=== PATIENT | male | born 1940 | race Two or more races ===

== ENCOUNTER 2017-07-17 15:07 | Inpatient (IN) | payer MEDICARE ==
[~2017-07-17] VITALS: Ht 170.2 cm; Wt 67.0 kg
[2017-07-17 15:30] VITALS: Ht 170.2 cm; Wt 67.0 kg
[2017-07-17 16:59] LABS: microscopic required? YES; urine erythrocyte 3+ (NEGATIVE)
[2017-07-17 17:05] LABS: BASOPHIL % 0 % (0-2); PLATELET COUNT 360 x10^3mcL (130-400); RED CELL DISTRIBUTION WIDTH 14.1 % (11.5-14.5)
[2017-07-17 17:16] LABS: CALCIUM 9.7 mg/dL (8.5-10.1); CARBON DIOXIDE 28.1 mmol/L (21-32); CHLORIDE SERUM 100 mmol/L (98-107); CREATININE SERUM 1.4 mg/dL (0.7-1.3); GLUCOSE SERUM 207 mg/dL (74-106); POTASSIUM SERUM 4.6 mmol/L (3.5-5.1); SODIUM SERUM 137 mmol/L (136-145)
[2017-07-17 17:20] LABS: ALKALINE PHOSPHATASE 300 U/L (46-116); ALT/SGPT 232 U/L (16-63); AST/SGOT 377 U/L (15-37); BILIRUBIN TOTAL 2.36 mg/dL (0.20-1.00); TOTAL PROTEIN, SERUM 6.9 g/dL (6.4-8.2)
[2017-07-17] MEDS ORDERED: ADVAIR DISKUS 21 DSK IH (18:13)
[2017-07-17] MEDS ORDERED: TYLENOL WITH CO1 TA2 PO (18:13)
[2017-07-17] MEDS ORDERED: [UNRECOGNIZED DRUG - OTHER] (18:14)
[2017-07-17] MEDS ORDERED: ASPIRIN ADULT L81 M5 PO (18:14)
[2017-07-17] MEDS ORDERED: FLOVENT HF0.11 MG/A1 IH (18:14)
[2017-07-17] MEDS ORDERED: AMLODIPINE BESY10 M2 PO (18:15)
[2017-07-17] MEDS ORDERED: FLUOXETINE HYDR10 M1 PO (18:15)
[2017-07-17] MEDS ORDERED: NATURE'S BLEND F1 MG PO (18:15)
[2017-07-17] MEDS ORDERED: AMA1 PO (18:15)
[2017-07-17] MEDS ORDERED: GUAIFENESIN AC473 ML PO (18:16)
[2017-07-17] MEDS ORDERED: PANTOPRAZOLE SO40 M1 PO (18:18)
[2017-07-17] MEDS ORDERED: ELOCON0.11 (18:18)
[2017-07-17] MEDS ORDERED: TOPROL XL25 MG PO (18:18)
[2017-07-17] MEDS ORDERED: PROAIR HFA8.5 GM IH (18:19)
[2017-07-17 19:22] LABS: AMPHETAMINE QUAL UR NONE DETECTED (NEG <=1000)
[2017-07-17 19:32] LABS: CHOLESTEROL/HDL RATIO 4.8; MAGNESIUM 1.8 mg/dL (1.8-2.4); PHOSPHOROUS 3.3 mg/dL (2.5-4.9)
[2017-07-17 19:33] LABS: FREE THYROXINE INDEX 4.3 ug/dL (1.4-4.5); T4(THYROXINE) 11.3 ug/dL (4.7-13.3)
[2017-07-17 19:36] LABS: T3 TOTAL 0.86 ng/mL
[2017-07-17 19:59] VITALS: BP 160/73
[2017-07-17 20:14] LABS: FREE T4 1.78 ng/dL (0.76-1.46)
[2017-07-17 21:50] VITALS: BP 160/73
[2017-07-18 05:41] VITALS: BP 140/55
[2017-07-18 07:07] LABS: BASOPHIL % 0.2 % (0-2); PLATELET COUNT 327 x10^3mcL (130-400); RED CELL DISTRIBUTION WIDTH 14.3 % (11.5-14.5)
[2017-07-18 07:14] LABS: CALCIUM 8.5 mg/dL (8.5-10.1); CARBON DIOXIDE 27.4 mmol/L (21-32); CHLORIDE SERUM 103 mmol/L (98-107); CREATININE SERUM 1.2 mg/dL (0.7-1.3); GLUCOSE SERUM 162 mg/dL (74-106); POTASSIUM SERUM 3.8 mmol/L (3.5-5.1); SODIUM SERUM 136 mmol/L (136-145)
[2017-07-18 13:58] VITALS: BP 114/49
[2017-07-18 16:00] VITALS: BP 118/52
[2017-07-18 22:36] VITALS: BP 112/56
[2017-07-19 05:44] VITALS: BP 124/51
[2017-07-19 07:06] LABS: BASOPHIL % 0.3 % (0-2); PLATELET COUNT 287 x10^3mcL (130-400)
[2017-07-19 07:20] LABS: RED CELL DISTRIBUTION WIDTH 14.6 % (11.5-14.5)
[2017-07-19 08:19] LABS: CALCIUM 8.1 mg/dL (8.5-10.1); CARBON DIOXIDE 24.3 mmol/L (21-32); CHLORIDE SERUM 106 mmol/L (98-107); CREATININE SERUM 1.1 mg/dL (0.7-1.3); GLUCOSE SERUM 89 mg/dL (74-106); MAGNESIUM 1.5 mg/dL (1.8-2.4); PHOSPHOROUS 2.9 mg/dL (2.5-4.9); SODIUM SERUM 138 mmol/L (136-145)
[2017-07-19 08:44] VITALS: BP 146/61
[2017-07-19 10:11] LABS: BILIRUBIN DIRECT 0.23 mg/dL (0.0-0.2); BILIRUBIN TOTAL 0.62 mg/dL (0.20-1.00)
[2017-07-19 10:14] LABS: ALBUMIN 2.6 g/dL (3.4-5.0); TOTAL PROTEIN, SERUM 6.1 g/dL (6.4-8.2)
[2017-07-19 13:52] VITALS: BP 128/51
[2017-07-19 18:35] VITALS: BP 116/56
[2017-07-19 23:05] VITALS: BP 134/56
[2017-07-20 06:42] VITALS: BP 135/66
[2017-07-20 07:03] LABS: BASOPHIL % 0.4 % (0-2); PLATELET COUNT 302 x10^3mcL (130-400); RED CELL DISTRIBUTION WIDTH 14.5 % (11.5-14.5)
[2017-07-20 07:12] LABS: CALCIUM 7.8 mg/dL (8.5-10.1); CHLORIDE SERUM 106 mmol/L (98-107); CREATININE SERUM 1.1 mg/dL (0.7-1.3); GLUCOSE SERUM 180 mg/dL (74-106); MAGNESIUM 1.9 mg/dL (1.8-2.4); PHOSPHOROUS 2.5 mg/dL (2.5-4.9); POTASSIUM SERUM 3.5 mmol/L (3.5-5.1); SODIUM SERUM 141 mmol/L (136-145)
[2017-07-20 09:45] VITALS: BP 121/47
[2017-07-20 13:00] VITALS: BP 120/56
[2017-07-20 16:35] VITALS: BP 136/56
[2017-07-20 22:00] VITALS: BP 141/56
[2017-07-21 05:10] VITALS: BP 125/61
[2017-07-21 06:47] LABS: BASOPHIL % 0.4 % (0-2); PLATELET COUNT 332 x10^3mcL (130-400); RED CELL DISTRIBUTION WIDTH 14.5 % (11.5-14.5)
[2017-07-21 06:51] LABS: CALCIUM 8.1 mg/dL (8.5-10.1); CARBON DIOXIDE 22.4 mmol/L (21-32); CHLORIDE SERUM 106 mmol/L (98-107); CREATININE SERUM 1.1 mg/dL (0.7-1.3); GLUCOSE SERUM 153 mg/dL (74-106); MAGNESIUM 1.6 mg/dL (1.8-2.4); PHOSPHOROUS 2.3 mg/dL (2.5-4.9); SODIUM SERUM 139 mmol/L (136-145)
[2017-07-21 09:40] VITALS: BP 135/57
[2017-07-21] MEDS ORDERED: LEVAQUIN750 MG PO ×2 (11:00→11:27)
[2017-07-21] MEDS ORDERED: LAC PO ×2 (11:00→11:21)
[2017-07-21] MEDS ORDERED: GLIMEPIRIDE2 M1 PO (11:00)
[2017-07-21] MEDS ORDERED: PROZ10 PO (11:11)
[2017-07-21] MEDS ORDERED: THERAGRAN-M1 TA4 PO (11:22)
[2017-07-21 13:36] VITALS: BP 128/48
[2017-07-21 15:48] VITALS: BP 128/48
== END 2017-07-21 17:00 | disposition home health service (06) | DRG 689 ==
LOC: ED 15:07 → DU 18:10
PROVIDERS: Emergency Medicine; Student in an Organized Health Care Education/Training Program
DX: N39.0 Urinary tract infection, site not specified (principal); G93.41 Metabolic encephalopathy; N17.0 Acute kidney failure with tubular necrosis; C79.11 Secondary malignant neoplasm of bladder; E44.0 Moderate protein-calorie malnutrition; E86.0 Dehydration; N13.2 Hydronephrosis with renal and ureteral calculous obstruction; C61 Malignant neoplasm of prostate; A08.4 Viral intestinal infection, unspecified; I11.9 Hypertensive heart disease without heart failure; I13.10 Hypertensive heart and chronic kidney disease without heart failure, with stage 1 through stage 4 chronic kidney disease, or unspecified chronic kidney disease; E11.22 Type 2 diabetes mellitus with diabetic chronic kidney disease; N18.3 Chronic kidney disease, stage 3 (moderate); E11.65 Type 2 diabetes mellitus with hyperglycemia; D63.1 Anemia in chronic kidney disease; J30.9 Allergic rhinitis, unspecified; K21.9 Gastro-esophageal reflux disease without esophagitis; E78.5 Hyperlipidemia, unspecified; F17.200 Nicotine dependence, unspecified, uncomplicated; I25.2 Old myocardial infarction; Z95.1 Presence of aortocoronary bypass graft; Z79.82 Long term (current) use of aspirin; Z79.84 Long term (current) use of oral hypoglycemic drugs; Z68.23 Body mass index [BMI] 23.0-23.9, adult
CPT/HCPCS: 76770; 82962; 83880; 84439; 87046; 87046-59; J0696; J1940; J2405; J2765; J3475; J3480; J7030; J7620; Q0092

== ENCOUNTER 2018-01-06 23:23 | Inpatient (IN) | payer MEDICARE ==
[~2018-01-06] VITALS: Ht 170.2 cm; Wt 65.0 kg
[~2018-01-06 23:23] MED LIST: ADVAIR DISKUS 21 DSK IH; AMA1 PO; AMLODIPINE BESY10 M2 PO; ASPIRIN ADULT L81 M5 PO; ELOCON0.11; FLOVENT HF0.11 MG/A1 IH; FLUOXETINE HYDR10 M1 PO; GLIMEPIRIDE2 M1 PO; GUAIFENESIN AC473 ML PO; LAC PO; LEVAQUIN750 MG PO; NATURE'S BLEND F1 MG PO; PANTOPRAZOLE SO40 M1 PO; PROAIR HFA8.5 GM IH; PROZ10 PO; THERAGRAN-M1 TA4 PO; TOPROL XL25 MG PO; TYLENOL WITH CO1 TA2 PO; [UNRECOGNIZED DRUG - OTHER]
[2018-01-06 23:34] VITALS: Ht 170.2 cm; Wt 65.0 kg
[2018-01-07 00:03] LABS: BASOPHIL % 0.5 % (0-2); PLATELET COUNT 304 x10^3mcL (130-400)
[2018-01-07 00:06] LABS: CALCIUM 8.4 mg/dL (8.5-10.1); CHLORIDE SERUM 105 mmol/L (98-107); CREATININE SERUM 1.9 mg/dL (0.7-1.3); GLUCOSE SERUM 129 mg/dL (74-106); POTASSIUM SERUM 3.7 mmol/L (3.5-5.1); SODIUM SERUM 140 mmol/L (136-145)
[2018-01-07 00:11] LABS: ALBUMIN 3.2 g/dL (3.4-5.0); ALKALINE PHOSPHATASE 111 U/L (46-116); ALT/SGPT 17 U/L (16-63); AST/SGOT 22 U/L (15-37); BILIRUBIN TOTAL 0.4 mg/dL (0.20-1.00); TOTAL PROTEIN, SERUM 7.4 g/dL (6.4-8.2)
[2018-01-07 00:12] LABS: RED CELL DISTRIBUTION WIDTH 15.8 % (11.5-14.5)
[2018-01-07 01:50] LABS: MAGNESIUM 1.7 mg/dL (1.8-2.4); PHOSPHOROUS 3.7 mg/dL (2.5-4.9)
[2018-01-07 01:51] LABS: RED BLOOD CELLS 3.47 M/mm3 (4.52-5.90)
[2018-01-07 01:51] LABS: microscopic required? YES; urine erythrocyte 2+ (NEGATIVE)
[2018-01-07 01:57] LABS: T3 TOTAL 0.82 ng/mL
[2018-01-07 01:57] LABS: AMPHETAMINE QUAL UR NONE DETECTED (See below)
[2018-01-07 01:58] LABS: FREE T4 1.02 ng/dL (0.76-1.46); FREE THYROXINE INDEX 2.3 ug/dL (1.4-4.5); T4(THYROXINE) 7.1 ug/dL (4.7-13.3)
[2018-01-07 02:03] VITALS: BP 157/65
[2018-01-07] MEDS ORDERED: GALANTAMINE HBR8 MG PO (02:18)
[2018-01-07] MEDS ORDERED: MYRBETRIQ25 MG PO (02:19)
[2018-01-07] MEDS ORDERED: XANAX0.25 MG PO (02:19)
[2018-01-07 02:23] LABS: TOTAL IRON BINDING CAPACITY 342 ug/dL (250-450)
[2018-01-07 02:30] LABS: IRON 24 ug/dL (65-170)
[2018-01-07 05:54] VITALS: BP 153/69
[2018-01-07 07:14] LABS: BASOPHIL % 0.8 % (0-2); PLATELET COUNT 289 x10^3mcL (130-400)
[2018-01-07 07:17] LABS: CALCIUM 9.6 mg/dL (8.5-10.1); CARBON DIOXIDE 26.3 mmol/L (21-32); CHLORIDE SERUM 108 mmol/L (98-107); CHOLESTEROL 198 mg/dL (<200); CHOLESTEROL/HDL RATIO 4.5; CREATININE SERUM 1.8 mg/dL (0.7-1.3); GLUCOSE SERUM 103 mg/dL (74-106); HDL CHOLESTEROL 44 mg/dL (40-60); POTASSIUM SERUM 4.3 mmol/L (3.5-5.1); SODIUM SERUM 142 mmol/L (136-145); TRIGLYCERIDES 77 mg/dL (<150)
[2018-01-07 07:36] LABS: RED CELL DISTRIBUTION WIDTH 15.1 % (11.5-14.5)
[2018-01-07 15:54] VITALS: BP 153/69
== END 2018-01-07 16:28 | disposition left against medical advice (07) | DRG 391 ==
LOC: ED 23:23 → DU 01-07 00:59
PROVIDERS: Emergency Medicine; Family Medicine
DX: K21.9 Gastro-esophageal reflux disease without esophagitis (principal); N17.0 Acute kidney failure with tubular necrosis; N39.0 Urinary tract infection, site not specified; E44.0 Moderate protein-calorie malnutrition; E11.9 Type 2 diabetes mellitus without complications; E83.42 Hypomagnesemia; R31.9 Hematuria, unspecified; J45.909 Unspecified asthma, uncomplicated; E78.5 Hyperlipidemia, unspecified; D64.9 Anemia, unspecified; F03.90 Unspecified dementia, unspecified severity, without behavioral disturbance, psychotic disturbance, mood disturbance, and anxiety; F41.9 Anxiety disorder, unspecified; I25.10 Atherosclerotic heart disease of native coronary artery without angina pectoris; I25.2 Old myocardial infarction; Z95.1 Presence of aortocoronary bypass graft; I12.9 Hypertensive chronic kidney disease with stage 1 through stage 4 chronic kidney disease, or unspecified chronic kidney disease; N18.3 Chronic kidney disease, stage 3 (moderate)
CPT/HCPCS: 82962; 83880; 84439; J0696; J3475; J7030; J7620; J7633; Q0092